=== PATIENT | female | born 1980 | race American Indian/Alaskan Native ===

== ENCOUNTER 2019-07-27 00:28 | Emergency (ER) | payer SELFPAY ==
[2019-07-27 00:39] VITALS: BP 139/81
[2019-07-27] MEDS ORDERED: ASPIRIN 325 MG TAB PO ONE (00:39)
[2019-07-27 01:17] LABS: Basophils # (Auto) 0.1 K/mm3 (0.0-0.1); Eosinophils # (Auto) 0.1 K/mm3 (0.0-0.4); Eosinophils % (Auto) 1.5 % (0.0-4.3); Hematocrit 36.3 % (30.3-42.9); Hemoglobin 12.3 gm/dl (10.1-14.3); Lymphocytes # (Auto) 2.2 K/mm3 (1.2-5.4); Lymphocytes % (Auto) 22.5 % (13.4-35.0); Mean Corpuscular HGB Conc 34 % (30-34); Mean Corpuscular Volume 90 fl (79-97); Monocytes # (Auto) 0.8 K/mm3 (0.0-0.8); Monocytes % (Auto) 7.8 % (0.0-7.3); Platelet Count 242 K/mm3 (140-440); Red Blood Count 4.06 M/mm3 (3.65-5.03); Red Cell Distribution Width 13.8 % (13.2-15.2)
--- NOTE | 2019-07-27 01:24 | XRay Report ---
CHEST 1 VIEW 07/27/2019 12:57 AM INDICATION / CLINICAL INFORMATION: Chest Pain. COMPARISON: None available. FINDINGS: SUPPORT DEVICES: None. HEART / MEDIASTINUM: No significant abnormality. LUNGS / PLEURA: No significant pulmonary or pleural abnormality. No pneumothorax. ADDITIONAL FINDINGS: No significant additional findings. IMPRESSION: 1. No acute abnormality of the chest. Signer Name: Nitin Lafleur MD Signed: 07/27/2019 1:19 AM Workstation Name: [id number]
[2019-07-27 01:40] LABS: BUN/Creatinine Ratio 7; Blood Urea Nitrogen 6 mg/dL (7-17); Calcium 9.3 mg/dL (8.4-10.2); Hemolysis Index 0
== END 2019-07-27 03:56 | disposition left against medical advice (07) ==
LOC: ED 00:28
DX: M54.2 Cervicalgia (principal); Z53.21 Procedure and treatment not carried out due to patient leaving prior to being seen by health care provider
CPT/HCPCS: 36415; 71045; 80048; 84484; 85025; 93005; 93010

== ENCOUNTER 2019-07-27 12:19 | Emergency (ER) | payer SELFPAY ==
--- NOTE | 2019-07-27 17:35 | Emergency Department Report ---
ED Chest Pain HPI - General Chief Complaint: Chest Pain Stated Complaint: BACK PAIN, CHEST ,NECK Time Seen by Provider: 07/27/19 16:44 Source: patient Mode of arrival: Ambulatory Limitations: No Limitations - History of Present Illness Initial Comments: This is a 38-year-old -[place] female who presents to the emergency room with right-sided chest pain that is radiating to her back. Patient states symptoms started last night. She came to the emergency room got tired of waiting and left. Last menstrual period was July 26, 2019. She denies taking anything for symptomatic relief. Patient denies recent injury. Primary care provider is [address] [place] [address]. Patient states she felt some pain when she left last night that was intermittent but continues off and on today. She denies nausea, vomiting, palpitations, dizziness, headache, cough, fever, or chills. MD Complaint: chest pain -: Last night Pain Location: right chest Pain Radiation: back Severity: moderate Severity scale (0 -10): 7 Quality: aching Consistency: intermittent Improves With: nothing Worsens With: nothing re: denies: nausea, vomting, diaphoresis, dyspnea, sense of impending doom Other Symptoms: denies: cough, fever, syncope, rash, acid taste in mouth, leg swelling, palpitations, burping Treatments Prior to Arrival: none Aspirin use within the Past 7 Days: (0) No - Related Data On Oral Contraceptives: No Home Medications Medication Instructions Recorded Confirmed Last Taken Vit No.126/Iron/Folic 1 tab PO DAILY 04/01/14 04/01/14 03/31/14 12:00 [Classic Tablet] 1 Previous Rx's Medication Instructions Recorded Last Taken Type oxyCODONE /ACETAMINOPHEN [Percocet 2 tab PO Q4H PRN #30 tablet 04/01/14 Unknown Rx 5/325] Ibuprofen [Motrin] 800 mg PO Q8H PRN #30 tablet 04/02/14 Unknown Rx Allergies Allergy/AdvReac Type Severity Reaction Status Date / Time No Known Allergies Allergy Verified 04/01/14 06:45 Heart Score - HEART Score History: Slightly suspicious EKG: Normal Age: < 45 Risk factors: No known risk factors Troponin: < normal limit HEART Score: 0 - Critical Actions Critical Actions: 0-3 pts:0.9-1.7%risk of adverse cardiac event.Candidate for discharge ED Review of Systems ROS: Stated complaint: BACK PAIN, CHEST ,NECK Other details as noted in HPI Constitutional: denies: chills, fever Respiratory: denies: cough, shortness of breath, wheezing Cardiovascular: chest pain. denies: palpitations Gastrointestinal: denies: abdominal pain, nausea, diarrhea Genitourinary: denies: urgency, dysuria, discharge Musculoskeletal: denies: back pain, joint swelling, arthralgia Skin: denies: rash, lesions Neurological: denies: headache, weakness, paresthesias Psychiatric: denies: anxiety, depression ED Past Medical Hx - Past Medical History Hx Hypertension: No Hx Congestive Heart Failure: No Hx Diabetes: No Hx Deep Vein Thrombosis: No Hx Renal Disease: No Hx Sickle Cell Disease: No Hx Seizures: No Hx Asthma: No Hx COPD: No Hx HIV: No - Surgical History Hx Cholecystectomy: Yes Additional Surgical History: x3 - Social History Smoking Status: Never Smoker Substance Use Type: None - Medications Home Medications: Home Medications Medication Instructions Recorded Confirmed Last Taken Type Vit No.126/Iron/Folic 1 tab PO DAILY 04/01/14 04/01/14 03/31/14 12:00 History [Classic Tablet] 1 oxyCODONE /ACETAMINOPHEN [Percocet 2 tab PO Q4H PRN #30 tablet 04/01/14 Unknown Rx 5/325] Ibuprofen [Motrin] 800 mg PO Q8H PRN #30 tablet 04/02/14 Unknown Rx ED Physical Exam - General Limitations: No Limitations General appearance: alert, in no apparent distress, obese - ENT ENT exam: Present: mucous membranes moist - Respiratory Respiratory exam: Present: normal lung sounds bilaterally. Absent: respiratory distress, wheezes, rales, rhonchi, stridor, chest wall tenderness, accessory muscle use - Cardiovascular Cardiovascular Exam: Present: regular rate, normal rhythm. Absent: systolic murmur, diastolic murmur, rubs, gallop - GI/Abdominal GI/Abdominal exam: Present: soft, normal bowel sounds. Absent: distended, tenderness, guarding, rebound, rigid - Neurological Exam Neurological exam: Present: alert, oriented X3, normal gait - Psychiatric Psychiatric exam: Present: normal affect, normal mood - Skin Skin exam: Present: warm, dry, intact, normal color. Absent: rash ED Course Vital Signs 07/27/19 07/27/19 12:24 18:19 Temperature 98.0 F Pulse Rate 79 69 Respiratory 16 16 Rate Blood Pressure 115/59 103/59 O2 Sat by Pulse 98 100 Oximetry ED Medical Decision Making - Lab Data Lab Results 07/27/19 Range/Units 17:51 Troponin T < 0.010 (0.00-0.029) ng/mL - EKG Data -: No EKG Interpreted by Me (EKG interpreted by attending) EKG shows normal: sinus rhythm Rate: normal - EKG Data When compared to previous EKG there are: previous EKG unavailable - Radiology Data Radiology results: report reviewed interpreted by me: CHEST 1 VIEW 07/27/2019 12:57 AM INDICATION / CLINICAL INFORMATION: Chest Pain. COMPARISON: None available. FINDINGS: SUPPORT DEVICES: None. HEART / MEDIASTINUM: No significant abnormality. LUNGS / PLEURA: No significant pulmonary or pleural abnormality. No pneumothorax. ADDITIONAL FINDINGS: No significant additional findings. IMPRESSION: 1. No acute abnormality of the chest. - Medical Decision Making 38 y.o. female that presents with chest pain since last night. Vitals stable. Patient eloped this morning around 0230 this morning. No significant past medical history. Obtained BMP, CBC, troponin, and chest xray. Heart score 0. Hypokalemia, troponins x2 negative, all other labs unremarkable for emergent chest pain. Chest x-ray negative for acute cardiopulmonary findings. EKG no overt evidence of STEMI. Given Klor-Con 40 mEQ. Due to work-up and exam there is low suspicion for acute coronary syndrome, pulmonary embolus, pneumothorax, or aortic dissection, or other emergent problems. Patient's pain improved prior to discharge and well appearing. Continue taking NSAIDs. Referrals given for cardiology as needed. Discharged home stable. Follow up with PCP in 24-48 hours. Given strict return instructions. Critical care attestation.: If time is entered above; I have spent that time in minutes in the direct care of this critically ill patient, excluding procedure time. ED Disposition Clinical Impression: Chest pain Qualifiers: Chest pain type: other chest pain Qualified Code(s): R07.89 - Other chest pain; R07.8 - Other chest pain Disposition: TO HOME OR SELFCARE Is pt being admited?: No Condition: Stable Instructions: Chest Pain (ED) Additional Instructions: Take pain medication every 8 hours as needed for pain. Follow up with your primary care doctor in 24 to 48 hours. I have also provided a list of transportation services representative for follow-up. Return to the emergency room with worsening symptoms such as chest pain, palpitations, difficulty breathing, or radiating pain. Referrals: [facility] [Outside] - 3-5 Days [facility] [Outside] - 3-5 Days GODWIN BYRD MD [Staff Physician] - 3-5 Days [facility] [Provider Group] - 3-5 Days Forms: Work/School Release Form(ED) Time of Disposition: 18:55
[2019-07-27] MEDS ORDERED: POTASSIUM CHLORIDE ER 20 MEQ TAB PO ONE (17:48)
[2019-07-27 18:43] VITALS: BP 103/59
== END 2019-07-27 19:07 | disposition home or self-care (01) ==
LOC: ED 12:19
DX: R07.89 Other chest pain (principal); Z90.49 Acquired absence of other specified parts of digestive tract; Z79.899 Other long term (current) drug therapy
CPT/HCPCS: 36415; 84484; 93005; 93010